=== PATIENT | male | born 2000 | race African-American/Black ===

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

== ENCOUNTER 2022-01-24 11:44 | Emergency (ER) | payer MEDICAID, SELFPAY ==
[2022-01-24 11:45] VITALS: BP 116/86; PULSE 64; RESP 18; TEMP 35.1; O2SAT 95; BMI 18.4
--- NOTE | 2022-01-24 11:59 | EKG12_ITS ---
Test Reason : SYNCOPE Blood Pressure : / mmHG Vent. Rate : 067 BPM Atrial Rate : 067 BPM P-R Int : 118 ms QRS Dur : 076 ms QT Int : 356 ms P-R-T Axes : 025 065 054 degrees QTc Int : 376 ms Normal sinus rhythm Normal ECG Confirmed by MIC PINEDA, KAREY ([id number]), electronic news gathering editor TULIO CARRINGTON ([id number]) on 01/25/2022 12:52:39 PM Referred By: TYREE Confirmed By:KAREY HAILE MD
[2022-01-24] MEDS: 0.9% Normal Saline 1,000 ML 1000 ML IV (12:38)
[2022-01-24 12:48] LABS: Absolute Lymphocyte Count 1.68 X10^3/uL (0.83-4.51); Basophil# 0.03 X10^3/uL; Basophil% 0.7 % (0-1); Eosinophil# 0.02 X10^3/uL; Eosinophils% 0.5 % (0-5); Hematocrit 46.3 % (40-54); Hemoglobin 15.3 g/dL (13.0-16.5); Lymphocyte # 1.68 X10^3/ul (0.83-4.51); Lymphocyte % 41.4 % (19-41); Mean Corpuscular Hgb 31.5 pg (27.0-32.0); Mean Corpuscular Volume 95.3 fL (80-94); Mean Platelet Vol. 10.6 fl (6.2-12.0); Monocyte# 0.28 X10^3/uL; Monocyte% 6.9 % (0-10); NRBC Flagged by Analyzer 0 % (0-5); Neutrophil # 2.04 X10^3/uL (2.7-7.7); Neutrophil % 50.3 % (47-70); POSITIVE MORPHOLOGY YES; Platelet Count 199 K/mm3 (150-450); RBC Distribution Width CV 12.4 % (11.6-14.6); RBC Distribution Width SD 43.8 fl (35.1-43.9); Red Blood Count 4.86 M/mm3 (4.6-6.2); White Blood Count 4.1 K/mm3 (4.4-11.0)
[2022-01-24 13:01] LABS: Differential Indicated SCAN CRITERIA MET
[2022-01-24 13:02] LABS: ALB/GLOB Ratio 1.1 RATIO (0.9-2.4); AST(SGOT) 15 U/L (15-37); Alanine Aminotransfer ALT/SGPT 16 U/L (16-61); Albumin, Serum 3.9 g/dL (3.2-5.0); Alkaline Phosphatase 53 U/L (45-117); Anion Gap 3 (5-15); BUN 19 mg/dL (7-18); BUN/Creat Ratio 14.6 RATIO (10-20); Chloride 105 mmol/L (98-107); EST Glomerular Filtration Rate 75 mL/min (>60); Est Glom Filt Rate - Afr Amer 91 mL/min (>60); Estimated Creatinine Clearance 82.09 ml/min; Globulin 3.7 g/dL (2.2-4.2); Glucose 86 mg/dL (74-106); Potassium 3.9 mmol/L (3.5-5.1); Protein, Total 7.6 g/dL (6.4-8.2); Sodium Level 141 mmol/L (136-145); Troponin-I HS 4 pg/mL (3.0-78.0)
--- NOTE | 2022-01-24 13:16 | EX.ED.DYSGE1 ---
HPI History of Present Illness Chief Complaint: Syncope Informant: patient Onset/Context/Timing Onset: Today Context: Sudden Onset Timing: Lasts (Approximately 1 hour) Quality: Weakness Location: Generalized Worsened by: Nothing Relieved by: Nothing Narrative Narrative: Patient presents with a syncopal episode that occurred today. Patient states he was walking when he passed out and fell forward. Patient states he was out for approximately 1 hour. Patient states his vision went white. Patient states he felt like his heart was racing. Patient states he feels weak all over. Patient states nothing makes it better nothing makes it worse. Patient states that he did smoke marijuana today. Patient states he has been told that there has been some marijuana laced with fentanyl. Patient is unsure if the marijuana he had today was laced with fentanyl. PFSH PFSH Medical History no medical history no medical history Home Medications ciprofloxacin HCl 500 mg tablet 500 mg PO BID #14 tabs 06/28/19 [Rx Last Taken Unknown] Allergy/AdvReac Type Severity Reaction Status Date / Time No Known Allergies Allergy Verified 01/24/22 11:44 Surgical History no surgical history no surgical history Social History (Updated 01/24/22 @ 13:[address] Kev Fuentes, DO) Smoking Status: Never smoker substance use type: marijuana ROS ROS ED Constitutional Constitutional ED: Denies chills or fever(s) Eyes Eyes: Reports change in vision; Denies blurry vision ENT ENT ED: Denies rhinorrhea or sore throat Cardiovascular Cardiovascular: Reports palpitations; Denies chest pain Respiratory/Chest Respiratory/Chest: Reports cough; Denies dyspnea Gastrointestinal Gastrointestinal: Denies nausea or vomiting Genitourinary Genitourinary ED: Denies dysuria or hematuria Musculoskeletal Musculoskeletal: Denies back pain or neck pain Integumentary Denies abscess or rash Neurologic Neurologic: Reports headache(s); Denies weakness Allergic/Immunologic Allergic/Immunologic ED: Denies mouth swelling or urticaria EXAM Physical Exam Const Vital Signs: 01/24/22 11:45 01/24/22 12:22 Temperature 95.1 F L Temperature Source Temporal Pulse Rate 64 Respiratory Rate 18 Respiratory Effort Normal Non-Labored Short of Breath Blood Pressure 116/86 H Blood Pressure Mean 96 Pulse Ox 95 Oxygen Delivery Method Room Air Positive well nourished and well developed General Appearance ED: well developed HEENT Reports moist mucous membranes Neck supple and no JVD Resp normal respiratory effort and clear to auscultation bilaterally Cardio regular rate, regular rhythm and no murmurs GI normal to inspection, nondistended, normoactive bowel sounds and non-tender Palpation: soft Extremity normal to inspection General Extremety ED: Negative for edema or tenderness General Extremity: Negative for edema Neuro oriented x3, CN's II-XII intact bilaterally and no sensory deficits noted Sensorium / Orientation: alert Motor Exam: strength 5/5 throughout Psych mental status grossly normal Skin no rashes or lesions noted MDM MDM MDM Narrative Medical decision making narrative: Patient was given IV fluids. EKG was obtained. On my interpretation, it showed a normal sinus rhythm with a rate of 67. CO interval, QRS interval, and QTc intervals were all normal. [employer] was normal. There are no acute ST or T wave changes. CBC showed a white blood cell count of 4.1 but was otherwise within normal limits. Comprehensive metabolic profile showed slightly elevated BUN of 19 but was otherwise within normal limits. High-sensitivity troponin was normal. Patient was advised of his findings. Patient was instructed to drink plenty of fluids. Patient was instructed to follow-up with his his primary care physician in 3 to 5 days. Patient understood and was agreeable with the plan. All questions were answered. Lab Data Attestation: I reviewed the patient's lab results. Labs: Laboratory Results - last 24 hr 01/24/22 01/24/22 12:30 12:30 WBC 4.1 L RBC 4.86 Hgb 15.3 Hct 46.3 MCV 95.3 H MCH 31.5 MCHC 33.0 RDW Std Deviation 43.8 RDW Coeff of Diana 12.4 Plt Count 199 MPV 10.6 Immature Gran % (Auto) 0.200 Neut % (Auto) 50.3 Lymph % (Auto) 41.4 H Hinds % (Auto) 6.9 Eos % (Auto) 0.5 Baso % (Auto) 0.7 Absolute Neuts (auto) 2.0 Absolute Lymphs (auto) 1.68 Nucleated RBC % 0 Sodium 141 Potassium 3.9 Chloride 105 Carbon Dioxide 33.0 H Anion Gap 3 L BUN 19 H Creatinine 1.30 Estim Creat Clear Calc 82.09 Est GFR (MDRD) Af Amer 91 Est GFR (MDRD) Non-Af 75 BUN/Creatinine Ratio 14.6 Glucose 86 Calcium 9.0 Total Bilirubin 0.40 AST 15 ALT 16 Alkaline Phosphatase 53 Troponin I High Sens 4 Total Protein 7.6 Albumin 3.9 Globulin 3.7 Albumin/Globulin Ratio 1.1 EKG Initial EKG: Attestation: I personally reviewed and interpreted this EKG as follows: Interpretation: Sinus Rhythm (67) and No Acute Injury Pattern Prior EKG tracings: not available for review Prior: No Prior Discharge Plan Triage Chief Complaint: Syncope ED Provider: Kev Fuentes Dx/Rx/DC Orders Clinical Impression: Syncope, Cannabis abuse Instructions: ED Fainting, Uncertain Cause Prescriptions: No Action ciprofloxacin HCl 500 MG tablet 500 mg PO BID Qty: 14 0RF Primary Care Provider: Care Physician,No Primary Referrals: Estephania Hernadez [Non-Staff] - 3-5 Days Care Physician,No Primary [Primary Care Provider] - Disposition Disposition: Home, Self Care
[2022-01-24 13:29] VITALS: BP 112/57; PULSE 71
[2022-01-24 13:33] LABS: Differential Comment SCANNED; Reactive Lymphocyte 1+
== END 2022-01-24 13:31 | disposition home or self-care (01) ==
PROVIDERS: Emergency Provider Emergency Medicine; Visit Provider Emergency Medicine
DX: R55 Syncope and collapse (principal); F12.10 Cannabis abuse, uncomplicated
CPT/HCPCS: 80053; 84484; 85025; 93005; 96360; 99285; J7030; A4216

== ENCOUNTER 2022-01-28 08:18 | Emergency (ER) | payer MEDICAID, SELFPAY ==
[2022-01-28 08:19] VITALS: BP 156/101; PULSE 123; RESP 18; TEMP 36.1; O2SAT 98; BMI 22.6
--- NOTE | 2022-01-28 08:30 | EDS_ITS ---
HPI HPI - GI History of Present Illness Chief Complaint: Foreign Body Detail of Chief Complaint: Swallowed a piece of a pencil. Informant: patient Abdominal Pain/Flank Pain Onset: Today and Hours Context: Sudden Onset Timing: Continuous Current Severity: Mild Maximum Severity: Mild Nausea/Vomiting/Emesis GI Symptom: Negative for Nausea or Vomiting Diarrhea/Melena/Hematochezia GI Symptom: Negative for Diarrhea, Melena or Hematochezia Associated Symptoms Associated Symptoms: Negative for Dysuria or Frequency Narrative Narrative: 21-year-old male in the local [place] [facility]. Today was using a small golf pencil to pick at a cavity in his left lower molar. The pencil broke and he swallowed a piece of it. This occurred in the last 2 hours or so. He denies any trouble breathing or swallowing. Prior similar symptoms: No Recent Illness/Hospitalization: No PFSH PFSH Medical History no medical history no medical history Allergy/AdvReac Type Severity Reaction Status Date / Time No Known Allergies Allergy Verified 01/28/22 08:18 Surgical History no surgical history Social History Smoking Status: Never smoker substance use type: marijuana ROS ROS ED ROS Narrative Denies recent illness. Review of Systems ROS Unobtainable: Denies due to encephalopathy Constitutional Constitutional ED: Denies chills or fever(s) ENT ENT ED: Denies ear pain Cardiovascular Cardiovascular: Denies chest pain Respiratory/Chest Respiratory/Chest: Denies cough or dyspnea Gastrointestinal Gastrointestinal: Denies abdominal pain Genitourinary Genitourinary ED: Denies dysuria Musculoskeletal Musculoskeletal: Denies arthralgias Integumentary Denies abscess Neurologic Neurologic: Denies headache(s) Psychiatric Psychiatric: Denies anxiety Endocrine Endocrinology: Denies polydipsia Hematologic/Lymphatic Hematologic/Lymphatic: Denies easy bleeding Allergic/Immunologic Allergic/Immunologic ED: Denies mouth swelling or tongue swelling EXAM Physical Exam Narrative Exam Narrative: 89-year-old male no acute distress. Vital signs stable afebrile. Pulse ox 90% on room air. No respiratory distress. No trouble swallowing or breathing. No drooling or stridor. H EENT exam posterior pharynx unremarkable. He is having no trouble breathing or swallowing. I gave him a glass of water he swallowed without any difficulty. He does have cavities on his left lower molar. No gingival swelling. Neck nontender no lymphadenopathy. Trachea midline. Lungs clear. Heart regular rhythm no murmur. Abdomen soft nontender. Moving all 4 extremities. Neurologically awake alert with no focal motor deficits. Const Vital Signs: 01/28/22 08:19 Temperature 96.9 F L Temperature Source Temporal Pulse Rate 123 H Respiratory Rate 18 Blood Pressure 156/101 H Blood Pressure Mean 119 Pulse Ox 98 Oxygen Delivery Method Room Air Positive well nourished and well developed; Negative for obese, cachectic, contractures or unkempt General Appearance ED: well developed and NAD; Negative for unkempt, cachectic, contractures or pallor Nutritional Appearance: Negative for cachectic or obese HEENT Reports moist mucous membranes normocephalic and atraumatic; Negative for trauma or tenderness Eyes PERRL and EOMs intact bilaterally General Eye ED: Negative for pale conjunctiva or scleral icterus Neck no lymphadenopathy, supple and no JVD General: Negative for tenderness Lymph Lymphatic: Negative for other Resp normal respiratory effort Effort and Inspection: Negative for respiratory distress or retractions Auscultation: Negative for rales, rhonchi or wheezes Cardio regular rhythm, S1 normal heart sound, S2 normal heart sound and no murmurs; Negative for regular rate Rate: tachycardic; Negative for bradycardia Rhythm: Negative for abnormal rhythm GI non-tender, non-distended and no masses Inspection: Negative for abdominal distention Auscultation: normoactive bowel sounds Palpation: soft; Negative for tender, guarding or rigid Back/Spine no CVA tenderness General Back: Negative for CVA tenderness Cervical Spine: Negative for cervical spine tenderness Thoracic Spine / Upper Back: Negative for thoracic spinal tenderness Lumbar Spine / Lower Back: Negative for lumbar spinal tenderness Coccyx: Negative for other Extremity full ROM General Extremety ED: Negative for edema or tenderness General Extremity: Negative for edema Neuro CN's II-XII intact bilaterally, moves all extremities and no sensory deficits noted Sensorium / Orientation: alert, oriented to person, oriented to place and oriented to time; Negative for orientation impaired, confused, lethargic or stuporous Motor Exam: strength 5/5 throughout; Negative for general weakness or strength abnormal Psych mental status grossly normal and thought process normal Appearance: Negative for unkempt or other Attitude: No agitated Mood & Affect: Negative for depressed, anxious or tearful Skin no wounds General Skin Exam: Negative for jaundice or pallor Lesions: no lesions Rashes: no rashes Trauma: Negative for abrasion Nails: Negative for discolored MDM MDM MDM Narrative Medical decision making narrative: 11-year-old male no acute distress. Vital signs stable afebrile. Reportedly may have swallowed a piece of pencil. He is not having any trouble breathing or swallowing. I explained to him that this really would not show up on an x-ray. He does not need upper endoscopy. He will be discharged back with the deputies to the [place] [facility]. They can follow-up if he needs further evaluation. Discharge Plan Triage Chief Complaint: Foreign Body ED Provider: Jimenez Childress Dx/Rx/DC Orders Clinical Impression: Foreign body, swallowed Instructions: ED Swallowed Foreign Body (Adult) Primary Care Provider: Care Physician,No Primary Referrals: Care Physician,No Primary [Primary Care Provider] - Activity Restrictions/Additional Instructions: Follow-up with the [place] [facility] doctor and further symptoms this should progressively proved. Disposition Disposition: Home, Self Care
== END 2022-01-28 08:42 ==
LOC: ED 08:39
PROVIDERS: Emergency Provider Emergency Medicine; Visit Provider Emergency Medicine
DX: T18.9XXA Foreign body of alimentary tract, part unspecified, initial encounter (principal); R10.9 Unspecified abdominal pain; Y92.89 Other specified places as the place of occurrence of the external cause
CPT/HCPCS: 99282

== ENCOUNTER 2022-12-22 11:06 | Emergency (ER) | payer MEDICAID, SELFPAY ==
[2022-12-22 11:07] VITALS: BP 139/73; PULSE 88; RESP 16; TEMP 36.4; O2SAT 100; BMI 20.7
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
[2022-12-22] MEDS: Ketorolac 30 MG/ML Syringe IM (11:33)
[2022-12-22] MEDS: Orphenadrine 60 MG/2 ML Ampul IM (11:33)
--- NOTE | 2022-12-22 13:07 | ED.RN ---
pt walking out, RN asked if patient wanted to wait to be properly discharge and patient replies Nope I'm gonna slide and continued to leave the ED.
== END 2022-12-22 13:13 | disposition left against medical advice (07) ==
PROVIDERS: Emergency Provider Emergency Medicine; Visit Provider Emergency Medicine
DX: S06.0X0A Concussion without loss of consciousness, initial encounter (principal); S16.1XXA Strain of muscle, fascia and tendon at neck level, initial encounter; Y04.8XXA Assault by other bodily force, initial encounter
CPT/HCPCS: 70450; 72125; 96372; 99283

== ENCOUNTER 2023-01-08 16:54 | Emergency (ER) | payer MEDICAID, SELFPAY ==
[2023-01-08 16:55] VITALS: BP 122/80; PULSE 109; RESP 14; TEMP 36.2; O2SAT 99; BMI 22.0
== END 2023-01-08 17:45 | disposition left against medical advice (07) ==
LOC: ED 18:15
DX: Z53.21 Procedure and treatment not carried out due to patient leaving prior to being seen by health care provider (principal)

== ENCOUNTER 2023-02-26 21:43 | Emergency (ER) | payer MEDICAID, SELFPAY ==
[2023-02-26 21:44] VITALS: BP 138/96; PULSE 124; RESP 18; TEMP 36; O2SAT 100
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
[2023-02-26 23:15] LABS: Absolute Lymphocyte Count 1.84 X10^3/uL (0.83-4.51); Absolute Neutrophil Count 3.7 X10^3/uL (2.0-7.7); Basophil# 0.05 X10^3/uL; Basophil% 0.8 % (0-1); Eosinophil# 0.01 X10^3/uL; Eosinophils% 0.2 % (0-5); Hematocrit 46.3 % (40-54); Hemoglobin 16.2 g/dL (13.0-16.5); Lymphocyte # 1.84 X10^3/ul (0.83-4.51); Lymphocyte % 29.9 % (19-41); Mean Corpuscular Hgb 31.4 pg (27.0-32.0); Mean Corpuscular Volume 89.7 fL (80-94); Mean Platelet Vol. 10.3 fl (6.2-12.0); Monocyte# 0.52 X10^3/uL; Monocyte% 8.5 % (0-10); NRBC Flagged by Analyzer 0 % (0-5); Neutrophil # 3.73 X10^3/uL (2.7-7.7); Neutrophil % 60.6 % (47-70); Platelet Count 246 K/mm3 (150-450); RBC Distribution Width CV 12.2 % (11.6-14.6); RBC Distribution Width SD 40.4 fl (35.1-43.9); Red Blood Count 5.16 M/mm3 (4.6-6.2); White Blood Count 6.2 K/mm3 (4.4-11.0)
[2023-02-26 23:34] LABS: Anion Gap 14 (5-15); BUN 21 mg/dL (7-18); BUN/Creat Ratio 13.7 RATIO (10-20); Calcium,Total 10.1 mg/dL (8.5-10.1); Chloride 102 mmol/L (98-107); Creatinine, Serum 1.53 mg/dL (0.70-1.30); EST Glomerular Filtration Rate 62 mL/min (>60); Est Glom Filt Rate - Afr Amer 75 mL/min (>60); Glucose 67 mg/dL (74-106); Potassium 3.2 mmol/L (3.5-5.1); Sodium Level 137 mmol/L (136-145)
--- NOTE | 2023-02-26 23:37 | ED.RN ---
ativan 0.5mg po administered, unable to chart on emar.
[2023-02-26 23:42] LABS: Alcohol, Blood (Medical)-Serum < 3.0 mg/dL
[2023-02-27 00:41] LABS: Amphetamine Urine VISTA POSITIVE (<1000 ng/mL); Barbiturate Urine VISTA NEGATIVE (< 200 ng/mL); Benzodiazepine Urine VISTA NEGATIVE (< 200 ng/mL); Cocaine Urine VISTA NEGATIVE (< 300 ng/mL); Ecstacy Urine VISTA POSITIVE (< 500 ng/mL); Methadone Urine VISTA NEGATIVE (< 300 ng/mL); PCP Urine VISTA NEGATIVE (< 25 ng/mL); THC Urine VISTA POSITIVE (< 50 ng/mL); Vista UDS pH Range 6
[2023-02-27 01:23] VITALS: PULSE 88
== END 2023-02-27 01:24 | disposition home or self-care (01) ==
PROVIDERS: Emergency Provider Emergency Medicine; Visit Provider Emergency Medicine
DX: F12.90 Cannabis use, unspecified, uncomplicated (principal); F41.9 Anxiety disorder, unspecified; R13.10 Dysphagia, unspecified; R06.00 Dyspnea, unspecified; E87.6 Hypokalemia
CPT/HCPCS: 36415; 80048; 80307; 80320; 85025; 93005; 99283; A4216; G0480

== ENCOUNTER 2023-10-18 22:48 | Outpatient (REF) | payer SELFPAY ==
[2023-10-18 22:48] VITALS: BP 165/77; PULSE 111; RESP 19; TEMP 36.8; O2SAT 100; BMI 24.2
--- NOTE | 2023-10-19 00:06 | EX.ED.DYSGE1 ---
HPI History of Present Illness Chief Complaint: Seizure Informant: patient Onset/Context/Timing Onset: Today Context: Sudden Onset Timing: Intermittent Quality: Shaking Location: Generalized Worsened by: Nothing Relieved by: Nothing Narrative Narrative: Patient presents with a seizure that occurred today. Patient states he was in long term when the seizure occurred. Patient states he has a history of seizures but does not take any antiepileptic medications. Patient does not remember any of the events around the seizure. Patient denies biting his tongue. Patient denies any loss of control of his bowels or bladder. Patient denies any preceding aura. His seizure was reported to be a generalized tonic-clonic seizure. PFSH PFS Medical History Seizure Drug use Allergy/AdvReac Type Severity Reaction Status Date / Time No Known Allergies Allergy Verified 10/18/23 22:49 Surgical History no surgical history no surgical history Social History Smoking Status: Current every day smoker tobacco type: cigarettes substance use type: marijuana ROS ROS ED Constitutional Constitutional ED: Denies chills or fever(s) Eyes Eyes: Denies blurry vision or change in vision ENT ENT ED: Denies rhinorrhea or sore throat Cardiovascular Cardiovascular: Denies chest pain or palpitations Respiratory/Chest Respiratory/Chest: Denies cough or dyspnea Gastrointestinal Gastrointestinal: Denies nausea or vomiting Genitourinary Genitourinary ED: Denies dysuria or hematuria Musculoskeletal Musculoskeletal: Reports neck pain; Denies back pain Integumentary Denies abscess or rash Neurologic Neurologic: Denies headache(s) or weakness Allergic/Immunologic Allergic/Immunologic ED: Denies mouth swelling or urticaria EXAM Physical Exam Const Vital Signs: 10/18/23 22:48 Temperature 98.3 F Temperature Source Oral Pulse Rate 111 H Respiratory Rate 19 H Blood Pressure 165/77 H Blood Pressure Mean 106 Pulse Ox 100 Positive well nourished and well developed General Appearance ED: well developed and NAD HEENT Reports moist mucous membranes Neck supple and no JVD Neck Narrative: There is mild tenderness of the cervical paraspinal muscles. There is no bony crepitance or step-off noted. There is good range of motion. General: tenderness Resp normal respiratory effort and clear to auscultation bilaterally Cardio regular rate and regular rhythm GI non-tender and non-distended Palpation: soft Extremity normal to inspection General Extremety ED: Negative for edema or tenderness General Extremity: Negative for edema Neuro oriented x3, CN's II-XII intact bilaterally and no sensory deficits noted Sensorium / Orientation: alert Motor Exam: strength 5/5 throughout Psych mental status grossly normal MDM MDM MDM Narrative Medical decision making narrative: Differential diagnosis includes breakthrough seizure, electrolyte abnormality, hypoglycemia, and infection. CBC will be obtained to assess for leukocytosis and anemia. Comprehensive metabolic profile will be obtained to assess for hepatic function, renal function, and electrolyte abnormality. Lab Data Attestation: I reviewed the patient's lab results. Lab results narrative: CBC was reviewed and was within normal limits. Comprehensive metabolic profile was reviewed. Creatinine was slightly elevated at 1.44. This is consistent with previous results. Labs: Laboratory Results - last 24 hr 10/18/23 10/19/23 22:36 00:32 WBC 7.8 RBC 5.18 Hgb 16.3 Hct 48.5 MCV 93.6 MCH 31.5 MCHC 33.6 RDW Std Deviation 42.9 RDW Coeff of Diana 12.4 Plt Count 277 MPV 11.7 Immature Gran % (Auto) 0.100 Neut % (Auto) 38.3 L Lymph % (Auto) 50.2 H Gilchrist % (Auto) 9.8 Eos % (Auto) 1.0 Baso % (Auto) 0.6 Absolute Neuts (auto) 3.0 Absolute Lymphs (auto) 3.90 Nucleated RBC % 0 Sodium 140 Potassium 3.5 Chloride 102 Carbon Dioxide 33.0 H Anion Gap 5 BUN 18 Creatinine 1.44 H Estim Creat Clear Calc 83.79 Est GFR (MDRD) Af Amer 80 Est GFR (MDRD) Non-Af 66 BUN/Creatinine Ratio 12.5 Glucose 107 H Calcium 9.7 Total Bilirubin 0.60 AST 19 ALT 17 Alkaline Phosphatase 75 Total Protein 8.6 H Albumin 4.8 Globulin 3.8 Albumin/Globulin Ratio 1.3 POC Glucose 78 Treatment and Re-Evaluation :: Seizure precautions were maintained. Patient had no further seizure activity here. Patient was given IV fluids. Patient did have a BGT that was borderline low at 78. Patient was given regular diet here. Patient was advised that could have been from low blood sugar or idiopathic. Patient was instructed to follow-up with his primary care physician in 5 to 7 days. Patient was instructed to return if worse in any way. Patient understood and was agreeable with the plan. All questions were answered. Discharge Plan Triage Chief Complaint: Seizure ED Provider: Kev Fuentes Dx/Rx/DC Orders Clinical Impression: Seizure, Tobacco use, Marijuana use Instructions: ED Seizure, Recurrent (Adult) Primary Care Provider: Care Physician,No Primary Referrals: Naomi Carbajal MD [Med Staff - Director Of Career Resources] - 3-5 Days Care Physician,No Primary [Primary Care Provider] - Print Language: Romansh Disposition Disposition: Home, Self Care
[2023-10-19] MEDS: 0.9% Normal Saline (1000mL) 1,000 ML 1000 ML IV (00:26)
[2023-10-19 00:40] LABS: Basophil# 0.05 X10^3/uL; Basophil% 0.6 % (0-1); Eosinophil# 0.08 X10^3/uL; Hematocrit 48.5 % (40-54); Hemoglobin 16.3 g/dL (13.0-16.5); Lymphocyte % 50.2 % (19-41); Mean Corp Hgb Conc 33.6 g/dL (32-36); Mean Corpuscular Hgb 31.5 pg (27.0-32.0); Mean Corpuscular Volume 93.6 fL (80-94); Mean Platelet Vol. 11.7 fl (6.2-12.0); Monocyte# 0.76 X10^3/uL; Monocyte% 9.8 % (0-10); NRBC Flagged by Analyzer 0 % (0-5); Neutrophil # 2.97 X10^3/uL (2.7-7.7); Neutrophil % 38.3 % (47-70); Platelet Count 277 K/mm3 (150-450); RBC Distribution Width CV 12.4 % (11.6-14.6); RBC Distribution Width SD 42.9 fl (35.1-43.9); Red Blood Count 5.18 M/mm3 (4.6-6.2); White Blood Count 7.8 K/mm3 (4.4-11.0)
[2023-10-19 00:45] LABS: ALB/GLOB Ratio 1.3 RATIO (0.9-2.4); AST(SGOT) 19 U/L (15-37); Alanine Aminotransfer ALT/SGPT 17 U/L (16-61); Albumin, Serum 4.8 g/dL (3.2-5.0); Alkaline Phosphatase 75 U/L (45-117); Anion Gap 5 (5-15); BUN 18 mg/dL (7-18); BUN/Creat Ratio 12.5 RATIO (10-20); Calcium,Total 9.7 mg/dL (8.5-10.1); Chloride 102 mmol/L (98-107); Creatinine, Serum 1.44 mg/dL (0.70-1.30); EST Glomerular Filtration Rate 66 mL/min (>60); Est Glom Filt Rate - Afr Amer 80 mL/min (>60); Estimated Creatinine Clearance 83.79 ml/min; Globulin 3.8 g/dL (2.2-4.2); Glucose 107 mg/dL (74-106); Potassium 3.5 mmol/L (3.5-5.1); Protein, Total 8.6 g/dL (6.4-8.2); Sodium Level 140 mmol/L (136-145)
[2023-10-19 00:48] VITALS: BP 112/70; PULSE 87; RESP 24; O2SAT 98
[2023-10-19 00:50] LABS: Bedside Glucose 78 mg/dL (74-106)
[2023-10-19 02:23] VITALS: BP 144/48; PULSE 77; RESP 18; TEMP 36.6; O2SAT 99
== END 2023-10-19 02:28 ==
LOC: ED 22:48
PROVIDERS: Visit Provider Emergency Medicine
DX: R56.9 Unspecified convulsions (principal); F17.210 Nicotine dependence, cigarettes, uncomplicated
CPT/HCPCS: 80053; 82962; 85025; J7030